=== PATIENT | female | born 1960 | race African-American/Black ===

== ENCOUNTER 2021-09-06 05:03 | Emergency (ER) | payer MEDICAID ==
[~2021-09-06] VITALS: Ht 162.6 cm; Wt 64.0 kg
[2021-09-06] MEDS ORDERED: ACETAMINOPHEN 325MG TABLET PO ONE (06:45)
[2021-09-06 08:52] LABS: BG BASE EXCESS 2.2 mmol/L (-2.0-2.0); BG CARBOXYHEMOGLOBIN 0.9 % (0.5-1.5); BG DEOXYHEMOGLOBIN 3.1 % (0.0-5.0); BG FRACTION INSPIRED OXYGEN 21; BG HCO3 ACT 24.1 mmol/L (22.0-26.0); BG METHEMOGLOBIN 0.3 % (0.0-1.5); BG OXYGEN SATURATION 96.9 % (92.0-98.5); BG OXYHEMOGLOBIN 95.7 % (94.0-97.0); BG PH 7.523 (7.350-7.450); BG PO2 81.4 mmHg (75.0-100.0); BG SAMPLE SITE RIGHT RADIAL; BG TOTAL HEMOGLOBIN 14.1 g/dL (12.0-18.0); BG VENT MODE ROOM AIR
[2021-09-06] MEDS ORDERED: CEFTRIAXONE SODIUM 1 G/VIAL IM ONE (09:15)
[2021-09-06] MEDS ORDERED: LIDOCAINE HCL 1% 20ML VIAL (Pyxis) INJ INFIL ONE (09:15)
[2021-09-06] MEDS ORDERED: ALBU6.7H15 INH (09:33)
[2021-09-06] MEDS ORDERED: AMOX-424 MT (09:33)
[2021-09-06 11:11] VITALS: BP 116/68
== END 2021-09-06 11:12 | disposition home or self-care (01) ==
LOC: ER 05:03
DX: U07.1 COVID-19 (principal); I10 Essential (primary) hypertension; J18.9 Pneumonia, unspecified organism
CPT/HCPCS: 36600; 71045; 82375; 82805; 87426; 93005; 96372; 99285; J0696; J3490